=== PATIENT | male | born 1990 | race African-American/Black ===

== ENCOUNTER 2022-02-12 09:19 | Emergency (ER) | payer OTHER ==
[~2022-02-12] VITALS: Ht 182.9 cm; Wt 75.0 kg
[2022-02-12 09:26] VITALS: BP 128/78
[2022-02-12] MEDS ORDERED: HYDR453.3 TP (10:01)
== END 2022-02-12 10:17 | disposition home or self-care (01) ==
LOC: ER 09:19
DX: S90.822A Blister (nonthermal), left foot, initial encounter (principal); X58.XXXA Exposure to other specified factors, initial encounter; Y93.89 Activity, other specified; Y92.89 Other specified places as the place of occurrence of the external cause; Y99.8 Other external cause status; Z88.0 Allergy status to penicillin; L30.9 Dermatitis, unspecified
CPT/HCPCS: 99282